=== PATIENT | male | born 1950 | race Caucasian/White ===

== ENCOUNTER → 2019-01-19 | Outpatient (CLI) | payer MEDICARE ==
[2019-01-19 10:42] LABS: Basophils # (A) 0.1 k/uL (0-0.2); Basophils % (A) 1 %; Eosinophils # (A) 0.2 k/uL (0-0.7); Eosinophils % (A) 4 %; HCT 40.4 % (39.0-53.0); HGB 13.4 gm/dL (13.0-17.5); Lymphocytes # (A) 1.6 k/uL (1.0-4.8); Lymphocytes % (A) 29 %; MCH 34.2 pg (25.0-35.0); MCHC 33.1 g/dL (31.0-37.0); MCV 103.3 fL (80.0-100.0); Macrocytosis Slight; Mean Platelet Volume 8.2; Monocytes # (A) 0.4 k/uL (0-1.0); Monocytes % (A) 6 %; Neutrophils # (A) 3.1 k/uL (1.3-7.7); Neutrophils % (A) 56 %; Platelet Count 118 k/uL (150-450); RBC 3.91 m/uL (4.30-5.90); RDW 14.8 % (11.5-15.5); WBC 5.5 k/uL (3.8-10.6)
[2019-01-19 11:42] LABS: Anion Gap 7 mmol/L; Blood Urea Nitrogen 15 mg/dL (9-20); Carbon Dioxide 23 mmol/L (22-30); Chloride 108 mmol/L (98-107); Potassium 5.1 mmol/L (3.5-5.1); Sodium 138 mmol/L (137-145)
== END | disposition home or self-care (01) ==
LOC: LABPAT 09:57
PROVIDERS: ATTEND Internal Medicine Interventional Cardiology
DX: Z01.812 Encounter for preprocedural laboratory examination (principal); I10 Essential (primary) hypertension; I35.0 Nonrheumatic aortic (valve) stenosis
CPT/HCPCS: 80051; 82565; 84520; 85025

== ENCOUNTER → 2019-02-02 | Day surgery (SDC) | payer MEDICARE ==
[2019-01-27 16:12] VITALS: BMI 50.0
[~2019-02-02] MED LIST: ALPRAZolam 0.25 MG TAB PO PRN; ALPRAZolam 0.5 MG TAB PO PRN; ASPIRIN 325 MG TAB PO STA; ATORVASTATIN 80 MG TAB PO STA; INSULIN ASPART (NovoLOG) 100 UNIT/ML VIAL SQ ONE; IOPAMIDOL-370 125ML BTL INJ ONE; LIDOCAINE 1% INJ 10MG/ML (20 ML MDV) ONE; LIDOCAINE 1% INJ 10MG/ML (20 ML MDV) SQ ONE; METOPROLOL SUCCINATE (ER) 50 MG TAB.ER.24H PO STA; MIDAZOLAM (PF) 2 MG/2 ML VIAL IVP ONE; NITROGLYCERIN SL TABS 0.4 MG TAB SUBLINGUAL PRN; RX INFO: IV CONTRAST WAS GIVEN 1 EACH MISC MISCELLANE PRN; SODIUM CHLORIDE 0.9% 1,000 ML IV ONE; SODIUM CHLORIDE 0.9% 1,000 ML IV SCH; SODIUM CHLORIDE 0.9% 1,000 ML in EMPTY BAG 1 BAG IV ONE; SODIUM CITRATE 10 GM/250 ML ML IV ONE; SODIUM CITRATE 250 ML IV PRN; VERAPAMIL 2.5 MG/ML 2 ML AMP ONE; fentaNYL (PF) 50 MCG/ML 2 ML AMP IVP ONE; fentaNYL (PF) 50 MCG/ML 2 ML AMP ONE
[2019-02-02 06:55] VITALS: RESP 18; TEMP 98.5
[2019-02-02 07:13] LABS: Glucose,Whole Blood 190 mg/dL (75-99)
[2019-02-02] MEDS: MIDAZOLAM (PF) 2 MG/2 ML VIAL IVP ONE ×2 (07:50→07:58)
[2019-02-02] MEDS: BENZOCAINE SPRAY 1 CAN MUCOUS MEM ONE ×2 (07:50→07:58)
[2019-02-02 08:06] LABS: Basophils % (A) 1 %; Eosinophils # (A) 0.2 k/uL (0-0.7); Eosinophils % (A) 4 %; HCT 41.1 % (39.0-53.0); HGB 13.2 gm/dL (13.0-17.5); Lymphocytes # (A) 1.4 k/uL (1.0-4.8); Lymphocytes % (A) 33 %; MCH 33.1 pg (25.0-35.0); MCHC 32.3 g/dL (31.0-37.0); MCV 102.6 fL (80.0-100.0); Macrocytosis Slight; Mean Platelet Volume 7.8; Monocytes # (A) 0.3 k/uL (0-1.0); Monocytes % (A) 7 %; Neutrophils # (A) 2.2 k/uL (1.3-7.7); Neutrophils % (A) 52 %; Platelet Count 112 k/uL (150-450); WBC 4.2 k/uL (3.8-10.6)
--- NOTE | 2019-02-02 09:31 | LTR ---
DATE OF SERVICE: February 02, 2019 RE: Mykestuartrobert Bryan Dear Dr. Roy; Mr. Bryan Parada underwent today transesophageal echocardiogram as well as a heart catheterization for further evaluation of the aortic valve. The transesophageal echocardiogram revealed evidence of severe aortic stenosis. The heart catheterization revealed only mild nonobstructive coronary artery disease. Given the above findings, I did recommend the patient to undergo aortic valve replacement, either surgically or percutaneously. I will continue following up with him and I will facilitate that as well. I want to thank you for allowing us to participate in his care and please do not hesitate to call if you have any question or concern. Sincerely, Kurt Louie MD MMKENDAL / EVANN: [phone] /
--- NOTE | 2019-02-02 09:31 | ECHOT ---
TRANSESOPHAGEAL ECHOCARDIOGRAM DATE OF SERVICE: February 02, 2019 PERFORMING PHYSICIAN: Kurt Louie MD, senior solutions architect. PROCEDURE PERFORMED: Transesophageal echocardiogram. INDICATION: This is a 68-year-old gentleman with aortic stenosis who underwent recently a transthoracic echocardiogram which revealed evidence of severe aortic stenosis with a mean gradient of 42 mmHg. He was symptomatic in term of shortness of breath with exertion. He was brought today to undergo transesophageal echocardiogram for further clarification of the aortic valve. COMPLICATION: None. LEVEL OF SEDATION: Moderate with sedation length of 12 minutes. PROCEDURE DESCRIPTION: After obtaining an informed consent, explaining the procedure, benefits, risks, complications and alternatives, the patient was brought to the transesophageal echocardiogram suite. A pulse oximetry and heart rate monitors were attached to the patient prior to the procedure. The patient's throat was sprayed using lidocaine locally. Following that, the patient was turned into left lateral position. A bite guard was placed and the patient was then sedated with the above doses of Versed and fentanyl in divided doses. Following that, the transesophageal echocardiogram probe was advanced through the bite guard into the mid esophagus where 2-D echocardiogram images as well as color Doppler images of various cardiac structures were obtained. We evaluated the interatrial septum using 2-D echocardiogram, color Doppler, and contrast study. The procedure was completed. There were no complications. FINDINGS: The left ventricular dimension and systolic function appeared to be within normal limits with an ejection fraction of 55% to 60% with mild concentric LVH. The right ventricle is of normal size and function. The left atrium appeared to be moderately dilated. The left atrial appendage appeared to be free from any thrombus. The interatrial septum appeared to be intact. The aortic valve appeared to be trileaflet valve and appeared to be thickened and calcified with evidence of severe aortic stenosis by area as well as by gradient. By planimetry, I got an aortic valve area of 0.8 centimeter square and by gradient, I get a mean gradient of 42 mmHg. The peak gradient was about 60 mmHg. The mitral valve appeared to be also thickened and calcified with evidence of moderate to severe mitral regurgitation. There was mild tricuspid regurgitation seen. CONCLUSION: 1. Trileaflet aortic valve with evidence of aortic sclerosis and severe aortic stenosis by area as well as by gradient. The area was 0.8 centimeter square and the mean gradient was 42 mmHg. 2. Thickened mitral valve leaflets with evidence of moderate to severe mitral regurgitation. 3. Normal left ventricular dimension and systolic function. 4. Mild concentric left ventricular hypertrophy. 5. Normal tricuspid valve and pulmonic valve. 6. Intact interatrial septum without any evidence of shunt. 7. Normal left atrial appendage without any evidence of thrombus. 8. Normal aortic root dimension. 9. No evidence of pericardial effusion. MMODL / IJN: [id number] /
--- NOTE | 2019-02-02 09:37 | CC ---
CARDIAC CATHETERIZATION REPORT DATE OF SERVICE: 02/02/2019 PERFORMING PHYSICIAN: Kurt Louie MD, El Teacher. PROCEDURE PERFORMED: Selective right and left coronary angiogram. INDICATION: This is a 68-year-old gentleman who was experiencing shortness of breath with exertion. He underwent recently a transthoracic echocardiogram which revealed evidence of severe aortic stenosis. He underwent earlier today transesophageal echocardiogram and brought today to undergo a heart catheterization. APPROACH: Right common femoral artery. COMPLICATION: None. LEVEL OF SEDATION: Moderate with sedation length of 22 minutes. PROCEDURE DESCRIPTION: After obtaining an informed consent, the patient was brought to the cardiac label cutter. The right common femoral artery was cannulated using micropuncture technique. The micropuncture wire passed easily, then I placed a 6-[place] sheath in the right common femoral artery. After that, I did selective right and left coronary angiogram using JR4 and JL3.5 catheters. The procedure was completed without any complication. SELECTIVE CORONARY ANGIOGRAM: 1. The right coronary artery is a large caliber vessel. It is a dominant vessel. The RCA has mild disease only in the midportion as well as in the PLV branch of RCA. 2. The left main is angiographically normal, it bifurcates into the circumflex and left anterior descending artery. 3. The left circumflex is a large caliber vessel and it is a nondominant vessel. The left circumflex has mild disease in the midportion, appeared to be in the range of 30%. 4. The LAD, the proximal LAD appeared to be angiographically normal. It gives rise into a first diagonal branch which is a medium caliber vessel, seems to be angiographically normal. The mid LAD appeared to be normal and gives rise into second diagonal branch which seems to be normal and the LAD distally appeared to be normal. The LAD does reach the apex. CONCLUSION: Mild nonobstructive coronary artery disease. POSTPROCEDURE MANAGEMENT: 1. The patient will need to have aortic valve replacement either surgically or percutaneously. 2. I will consider referring the patient to be seen by cardiothoracic surgeon. MMODL / IJN: [id number] /
[2019-02-02 15:09] VITALS: PULSE 75
[2019-02-02 15:18] LABS: Glucose,Whole Blood 248 mg/dL (75-99)
[2019-02-02 16:26] VITALS: BP 127/63
== END ==
LOC: CATHCVL 06:25
PROVIDERS: ATTEND Internal Medicine Interventional Cardiology
DX: I08.3 Combined rheumatic disorders of mitral, aortic and tricuspid valves (principal); I25.10 Atherosclerotic heart disease of native coronary artery without angina pectoris; I10 Essential (primary) hypertension; E78.00 Pure hypercholesterolemia, unspecified; E11.9 Type 2 diabetes mellitus without complications; Z72.0 Tobacco use; J44.9 Chronic obstructive pulmonary disease, unspecified; E66.3 Overweight; Z68.41 Body mass index [BMI] 40.0-44.9, adult; Z79.82 Long term (current) use of aspirin; Z79.4 Long term (current) use of insulin; Z79.51 Long term (current) use of inhaled steroids; Z79.899 Other long term (current) drug therapy; Z88.8 Allergy status to other drugs, medicaments and biological substances
CPT/HCPCS: 93312; 93320; 93325; 93454; 85025; C1894; C1769 ×2; J2001; J3010; Q9967; J2250